=== PATIENT | male | born 1935 | race Caucasian/White ===

== ENCOUNTER → 2021-10-15 | Day surgery (SDC) | payer OTHER ==
[~2021-10-15] MED LIST: ACETAMINOPHEN 1000 MG/100 ML 100 ML IV ONE; ASPIRIN81 MG PO; BIOTIN5 M1 PO; BUPIVACAINE HCL 0.5% INJ 30 ML VIAL INJ ONE; CENTRUM SILVER1 EAC6 PO; DEXAMETHASONE SOD PHOS INJ 4 MG/ML SDV ONE; EPHEDRINE SULFATE INJ 50 MG/ML VIAL ONE; FAMOTIDINE20 MG PO; FLOMAX0.4 MG PO; GLYCOPYRROLATE INJ 0.2 MG/ML VIAL ONE; KETOROLAC TROMETHAMINE 30 MG/ML VIAL ONE; LASIX20 MG PO; LIALDA1.2 GM PO; LIDOCAINE HCL 2% LOCAL INJ 5 ML SDV VIAL INJ ONE; LIPITOR10 MG PO; LYRICA50 MG PO; MICARDIS40 MG PO; MOBIC7.5 MG PO; NEOSTIGMINE 1 MG/ML 10ML VIAL ONE; ONDANSETRON HCL INJ 2MG/ML 2ML 2 MG/ML VIAL ONE; PLAVIX75 MG PO; POVIDONE IODINE 0.05% 0.05 % ML PO ONE; PROPOFOL IV EMULSION 10 MG/ML 20 ML VIAL ONE; SEVOFLURANE INHAL SOLN 250 ML PEN BTL ONE; SODIUM CHLORIDE 0.9% 50ML 50 ML ONE
[2021-10-15 08:20] VITALS: BP 165/78
== END | disposition home or self-care (01) ==
LOC: OR 05:00
PROVIDERS: ATTEND Podiatrist Foot & Ankle Surgery
DX: M19.072 Primary osteoarthritis, left ankle and foot (principal); R42 Dizziness and giddiness; G47.33 Obstructive sleep apnea (adult) (pediatric); I10 Essential (primary) hypertension; I71.4 Abdominal aortic aneurysm, without rupture; K21.9 Gastro-esophageal reflux disease without esophagitis; Z88.8 Allergy status to other drugs, medicaments and biological substances; Z01.812 Encounter for preprocedural laboratory examination; Z20.822 Contact with and (suspected) exposure to COVID-19; Z79.82 Long term (current) use of aspirin; Z79.02 Long term (current) use of antithrombotics/antiplatelets; Z79.899 Other long term (current) drug therapy; Z86.73 Personal history of transient ischemic attack (TIA), and cerebral infarction without residual deficits; Z86.11 Personal history of tuberculosis; Z85.89 Personal history of malignant neoplasm of other organs and systems
CPT/HCPCS: J0690; J1100; J1885; J2001; J2405; J2710; U0002

== ENCOUNTER → 2022-01-06 | Day surgery (SDC) | payer OTHER ==
[2022-01-04 14:54] LABS: BASOPHILS % 0.7 % (0.0-1.0); EOSINOPHILS # (AUTO) 0.4 (0.0-0.4); EOSINOPHILS % 7.3 % (0.0-6.0); LYMPHOCYTES # (AUTO) 1.8 (1.0-3.2); LYMPHOCYTES % 30.7 % (18.0-39.1); MEAN CORPUSCULAR HEMOGLOBIN 32.4 pg (28-32); MEAN CORPUSCULAR HGB CONC 32.4 g/dL (31-35); MONOCYTES # (AUTO) 0.8 (0.2-0.8); MONOCYTES % 13.2 % (4.4-11.3); NEUTROPHILS # (AUTO) 2.9 (2.1-6.9); NEUTROPHILS % 47.9 % (38.7-80.0); PLATELET COUNT 176 x10e3/uL (140-360); RED CELL DISTRIBUTION WIDTH 12.7 % (11.7-14.4)
[~2022-01-06] MED LIST changes: -ACETAMINOPHEN 1000 MG/100 ML 100 ML IV ONE; +BUPIVACAINE 0.25% 30ML SDV ONE; -BUPIVACAINE HCL 0.5% INJ 30 ML VIAL INJ ONE; +DEXAMETHASONE SOD PHOS 10 MG/1 ML VIAL ONE; -DEXAMETHASONE SOD PHOS INJ 4 MG/ML SDV ONE; -EPHEDRINE SULFATE INJ 50 MG/ML VIAL ONE; +FENTANYL CITRATE/PF 100MCG/2 ML INJ ONE; -GLYCOPYRROLATE INJ 0.2 MG/ML VIAL ONE; -KETOROLAC TROMETHAMINE 30 MG/ML VIAL ONE; +LIDOCAINE HCL 1% 30ML-PF VIAL ONE; -LIDOCAINE HCL 2% LOCAL INJ 5 ML SDV VIAL INJ ONE; +MIDAZOLAM HCL 2 MG/2 ML VIAL ONE; -NEOSTIGMINE 1 MG/ML 10ML VIAL ONE; -ONDANSETRON HCL INJ 2MG/ML 2ML 2 MG/ML VIAL ONE; -SEVOFLURANE INHAL SOLN 250 ML PEN BTL ONE; -SODIUM CHLORIDE 0.9% 50ML 50 ML ONE; +TRIAMCINOLONE ACET 40 MG/ML VIAL ONE
[2022-01-06 08:50] VITALS: BP 139/68
== END | disposition home or self-care (01) ==
LOC: OR 06:48
PROVIDERS: ATTEND Physical Medicine & Rehabilitation Pain Medicine
DX: M25.572 Pain in left ankle and joints of left foot (principal); M25.475 Effusion, left foot; M46.1 Sacroiliitis, not elsewhere classified; M54.16 Radiculopathy, lumbar region; M47.896 Other spondylosis, lumbar region; Z96.653 Presence of artificial knee joint, bilateral; G47.33 Obstructive sleep apnea (adult) (pediatric); I10 Essential (primary) hypertension; K21.9 Gastro-esophageal reflux disease without esophagitis; Z88.8 Allergy status to other drugs, medicaments and biological substances; Z01.812 Encounter for preprocedural laboratory examination; Z79.02 Long term (current) use of antithrombotics/antiplatelets; Z79.82 Long term (current) use of aspirin; Z79.899 Other long term (current) drug therapy; Z86.73 Personal history of transient ischemic attack (TIA), and cerebral infarction without residual deficits
CPT/HCPCS: 20605; 36415; 77002; 85025; J1100; J2001; J2250; J2704; J3010; J3301; 77003

== ENCOUNTER → 2022-12-15 | Day surgery (SDC) | payer MEDICARE, OTHER ==
[2022-12-06 14:32] LABS: BASOPHILS % 0.6 % (0.0-1.0); EOSINOPHILS # (AUTO) 0.5 (0.0-0.4); EOSINOPHILS % 6.5 % (0.0-6.0); HEMATOCRIT 35.1 % (38.2-49.6); HEMOGLOBIN 11.4 g/dL (14.0-18.0); LYMPHOCYTES # (AUTO) 2.1 (1.0-3.2); LYMPHOCYTES % 30.6 % (18.0-39.1); MEAN CORPUSCULAR HEMOGLOBIN 31.5 pg (28-32); MEAN CORPUSCULAR HGB CONC 32.5 g/dL (31-35); MONOCYTES # (AUTO) 0.9 (0.2-0.8); MONOCYTES % 12.8 % (4.4-11.3); NEUTROPHILS # (AUTO) 3.4 (2.1-6.9); NEUTROPHILS % 49.2 % (38.7-80.0); PLATELET COUNT 177 x10e3/uL (140-360); RED BLOOD COUNT 3.62 x10e6/uL (4.3-5.7); RED CELL DISTRIBUTION WIDTH 12.7 % (11.7-14.4)
[~2022-12-15] MED LIST changes: -BUPIVACAINE 0.25% 30ML SDV ONE; -DEXAMETHASONE SOD PHOS 10 MG/1 ML VIAL ONE; -FENTANYL CITRATE/PF 100MCG/2 ML INJ ONE; +IOPAMIDOL 200 MG/ML 20 ML VIAL IT ONE; +LACTATED RINGER'S 1,000 ML ONE; +LIDOCAINE HCL 2% LOCAL INJ 5 ML SDV VIAL INJ ONE; -MIDAZOLAM HCL 2 MG/2 ML VIAL ONE
[2022-12-15 07:25] VITALS: BP 166/71
== END | disposition home or self-care (01) ==
LOC: OR 12-08 05:45
PROVIDERS: ATTEND Physical Medicine & Rehabilitation Pain Medicine
DX: M46.1 Sacroiliitis, not elsewhere classified (principal); M25.472 Effusion, left ankle; M25.572 Pain in left ankle and joints of left foot; M25.551 Pain in right hip; I10 Essential (primary) hypertension; Z01.810 Encounter for preprocedural cardiovascular examination; Z01.812 Encounter for preprocedural laboratory examination; Z79.82 Long term (current) use of aspirin; Z79.02 Long term (current) use of antithrombotics/antiplatelets; Z79.899 Other long term (current) drug therapy
CPT/HCPCS: 36415; 85025; 93005; G0260; J2001 ×2; J2704; J3301; J7121; Q9967; 77003

== ENCOUNTER → 2023-09-08 | Outpatient (REF) | payer MEDICARE, OTHER ==
[~2023-09-08] MED LIST changes: -IOPAMIDOL 200 MG/ML 20 ML VIAL IT ONE; -LACTATED RINGER'S 1,000 ML ONE; -LIDOCAINE HCL 1% 30ML-PF VIAL ONE; -LIDOCAINE HCL 2% LOCAL INJ 5 ML SDV VIAL INJ ONE; -POVIDONE IODINE 0.05% 0.05 % ML PO ONE; -PROPOFOL IV EMULSION 10 MG/ML 20 ML VIAL ONE; -TRIAMCINOLONE ACET 40 MG/ML VIAL ONE
== END ==
LOC: MRI 08:18
PROVIDERS: ATTEND Physical Medicine & Rehabilitation Pain Medicine
DX: M25.551 Pain in right hip (principal)

== ENCOUNTER → 2024-05-15 | Day surgery (SDC) | payer MEDICARE, OTHER ==
[2024-05-13 14:41] LABS: BASOPHILS % 0.5 % (0.0-1.0); EOSINOPHILS # (AUTO) 0.2 (0.0-0.4); EOSINOPHILS % 1.9 % (0.0-6.0); HEMATOCRIT 34.2 % (38.2-49.6); HEMOGLOBIN 10.9 g/dL (14.0-18.0); LYMPHOCYTES # (AUTO) 1.7 (1.0-3.2); LYMPHOCYTES % 21.7 % (18.0-39.1); MEAN CORPUSCULAR HEMOGLOBIN 32.8 pg (28-32); MEAN CORPUSCULAR HGB CONC 31.9 g/dL (31-35); MONOCYTES # (AUTO) 0.6 (0.2-0.8); MONOCYTES % 7.3 % (4.4-11.3); NEUTROPHILS # (AUTO) 5.4 (2.1-6.9); NEUTROPHILS % 68.2 % (38.7-80.0); PLATELET COUNT 163 x10e3/uL (140-360); RED BLOOD COUNT 3.32 x10e6/uL (4.3-5.7); RED CELL DISTRIBUTION WIDTH 13.2 % (11.7-14.4); WHITE BLOOD COUNT 7.85 x10e3/uL (4.8-10.8)
[~2024-05-15] MED LIST changes: +AMLODIPINE BESYL5 MG PO; +IOPAMIDOL 200 MG/ML 20 ML VIAL IT ONE; +LIDOCAINE HCL 1% 30ML-PF VIAL ONE; +LIDOCAINE HCL 2% LOCAL INJ 5 ML SDV VIAL INJ ONE; +MELOXICAM7.5 MG PO; +NEXIUM40 MG PO; +PROPOFOL IV EMULSION 10 MG/ML 20 ML VIAL ONE; +TRIAMCINOLONE ACET 40 MG/ML VIAL ONE
[2024-05-15] MEDS: LACTATED RINGER'S 1,000 ML ONE (10:33)
[2024-05-15 10:59] VITALS: TEMP 97.5
[2024-05-15 11:14] VITALS: BP 124/64; PULSE 53; RESP 16; O2SAT 96
== END | disposition home or self-care (01) ==
LOC: OR 05:00
PROVIDERS: ATTEND Physical Medicine & Rehabilitation Pain Medicine
DX: M25.572 Pain in left ankle and joints of left foot (principal); M25.472 Effusion, left ankle; M46.1 Sacroiliitis, not elsewhere classified; M54.16 Radiculopathy, lumbar region; M47.816 Spondylosis without myelopathy or radiculopathy, lumbar region; G47.33 Obstructive sleep apnea (adult) (pediatric); I10 Essential (primary) hypertension; E78.5 Hyperlipidemia, unspecified; K21.9 Gastro-esophageal reflux disease without esophagitis; Z01.810 Encounter for preprocedural cardiovascular examination; Z01.812 Encounter for preprocedural laboratory examination; Z79.82 Long term (current) use of aspirin; Z79.1 Long term (current) use of non-steroidal anti-inflammatories (NSAID); Z79.899 Other long term (current) drug therapy; Z86.16 Personal history of COVID-19; Z87.01 Personal history of pneumonia (recurrent); Z85.818 Personal history of malignant neoplasm of other sites of lip, oral cavity, and pharynx; Z96.641 Presence of right artificial hip joint; Z86.73 Personal history of transient ischemic attack (TIA), and cerebral infarction without residual deficits; Z86.11 Personal history of tuberculosis
CPT/HCPCS: 20605; 36415; 77002; 85025; 93005; J2001 ×2; J2704; J3301; J7121; Q9967

== ENCOUNTER 2025-04-29 09:19 | Observation (INO) | payer MEDICARE, OTHER ==
[2025-04-28 09:06] LABS: BASOPHILS % 0.4 % (0.0-1.0); EOSINOPHILS % 2.9 % (0.0-6.0); LYMPHOCYTES % 19.9 % (18.0-39.1); MONOCYTES % 9.0 % (4.4-11.3); NEUTROPHILS % 67.5 % (38.7-80.0); RED CELL DISTRIBUTION WIDTH 12.5 % (11.7-14.4)
[2025-04-28 09:38] LABS: INR 0.87
[2025-04-28 09:52] LABS: EST GLOMERULAR FILTRATION RATE 42.0 ML/MIN (>=60)
[~2025-04-29 09:19] MED LIST changes: +BUMETANIDE1 MG PO; +CENTRUM SILVER1 EAC3 PO; +CLOPIDOGREL75 MG PO; -IOPAMIDOL 200 MG/ML 20 ML VIAL IT ONE; +LEG CRAMP MED PO; -LIDOCAINE HCL 1% 30ML-PF VIAL ONE; -LIDOCAINE HCL 2% LOCAL INJ 5 ML SDV VIAL INJ ONE; -PROPOFOL IV EMULSION 10 MG/ML 20 ML VIAL ONE; +ROPIVACAINE/EPI/CLONIDINE/KET 50 ML SYRINGE INJ ONE; -TRIAMCINOLONE ACET 40 MG/ML VIAL ONE; +TYLENOL EXTRA500 MG PO
[2025-04-29] MEDS: LACTATED RINGER'S 1,000 ML ONE (10:29)
[2025-04-29] MEDS: CEFAZOLIN SODIUM 2 GM ONE (10:29)
[2025-04-29] MEDS ORDERED: MIDAZOLAM HCL 2 MG/2 ML VIAL ONE (10:47)
[2025-04-29] MEDS ORDERED: ETOMIDATE 40 MG/ 20ML VIAL IV ONE (10:47)
[2025-04-29] MEDS ORDERED: DEXAMETHASONE SOD PHOS INJ 4 MG/ML SDV ONE (10:47)
[2025-04-29] MEDS ORDERED: KETOROLAC TROMETHAMINE 30 MG/ML VIAL ONE (10:47)
[2025-04-29] MEDS ORDERED: ONDANSETRON HCL INJ 2MG/ML 2ML 2 MG/ML VIAL ONE (10:47)
[2025-04-29] MEDS ORDERED: FENTANYL CITRATE/PF 100MCG/2 ML INJ ONE (10:47)
[2025-04-29] MEDS ORDERED: ROCURONIUM BROMIDE 1 ML IV ONE (10:48)
[2025-04-29] MEDS ORDERED: ACETAMINOPHEN 1000 MG/100 ML 100 ML IV ONE (11:56)
[2025-04-29] MEDS ORDERED: Morphine 10mg syringe 10 MG/ML INJ ONE (12:01)
[2025-04-29] MEDS ORDERED: SUGAMMADEX SODIUM 200 MG/2 ML VIAL IV ONE (12:05)
[2025-04-29] MEDS: ONDANSETRON HCL INJ 2MG/ML 2ML 2 MG/ML VIAL ONE (13:00)
[2025-04-29] MEDS: METOCLOPRAMIDE HCL 10 MG/2ML VIAL ONE (13:00)
[2025-04-29] MEDS: FENTANYL CITRATE/PF 100MCG/2 ML INJ ONE (13:05)
[2025-04-29 14:30] VITALS: BP 112/58; PULSE 65; RESP 18; TEMP 97.7; O2SAT 99
[2025-04-29 15:20] VITALS: BP 112/58; PULSE 65; RESP 18; TEMP 97.5; O2SAT 99
[2025-04-29] MEDS ORDERED: FAMOTIDINE40 MG PO (15:58)
[2025-04-29 18:45] VITALS: BP 130/44; PULSE 65; RESP 18; TEMP 97.4; O2SAT 95
[2025-04-29] MEDS ORDERED: Morphine 2mg Syringe 2 MG/ML SYR IV PRN (19:00)
[2025-04-29] MEDS ORDERED: HYDROCODONE/APAP 5MG-325MG TAB PO PRN ×2 (19:00→21:00)
[2025-04-29] MEDS ORDERED: ALBUTEROL 90 MCG/ACT INHALER INH PRN (19:00)
[2025-04-29] MEDS: ACETAMINOPHEN 325 MG TAB PO PRN (19:43)
[2025-04-29] MEDS ORDERED: SEVOFLURANE INHAL SOLN 250 ML PEN BTL ONE (19:51)
[2025-04-29 20:00] VITALS: BP 137/53; PULSE 57; RESP 16; TEMP 97.7; O2SAT 100
[2025-04-29 21:00] VITALS: BP 137/53; PULSE 57; RESP 18; TEMP 97.7; O2SAT 100
[2025-04-29] MEDS ORDERED: Morphine 4mg INJECTION 4 MG/ML INJ IV PRN (21:00)
[2025-04-29] MEDS ORDERED: ACETAMINOPHEN 325 MG TAB PO PRN (21:00)
[2025-04-29] MEDS: ONDANSETRON HCL INJ 2MG/ML 2ML 2 MG/ML VIAL IV PRN (21:50)
[2025-04-30] VITALS: BP 161/59; PULSE 62; RESP 18; TEMP 97.7; O2SAT 100
[2025-04-30] MEDS: HEPARIN SOD (PORCINE) 5,000 UNIT/ML VIAL SC SCH (00:48)
[2025-04-30] MEDS: MELATONIN 5 MG TABLET PO PRN (01:46)
[2025-04-30 05:09] VITALS: BP 122/58; PULSE 64; RESP 18; TEMP 97.5; O2SAT 100
[2025-04-30 05:13] LABS: BASOPHILS % 0.2 % (0.0-1.0); EOSINOPHILS % 0.1 % (0.0-6.0); LYMPHOCYTES % 14.2 % (18.0-39.1); MONOCYTES % 11.0 % (4.4-11.3); NEUTROPHILS % 74.2 % (38.7-80.0); RED CELL DISTRIBUTION WIDTH 12.6 % (11.7-14.4)
[2025-04-30 05:47] LABS: EST GLOMERULAR FILTRATION RATE 43.0 ML/MIN (>=60)
[2025-04-30 09:21] VITALS: BP 124/59; PULSE 59; RESP 18; TEMP 98.3; O2SAT 97
[2025-04-30 10:03] VITALS: BP 124/59; PULSE 59; RESP 18; TEMP 98.3; O2SAT 97
[2025-04-30] MEDS ORDERED: KEFLEX125 MG/5 M PO (15:53)
[2025-04-30] MEDS ORDERED: TYLENOL EXTRA500 MG PO (15:58)
== END 2025-04-30 15:00 | disposition home or self-care (01) ==
LOC: OR 09:19 → PACU V 12:37 → MED/SURG2 14:43
PROVIDERS: ADMIT Orthopaedic Surgery; ATTEND Orthopaedic Surgery
DX: M16.12 Unilateral primary osteoarthritis, left hip (principal); D64.89 Other specified anemias; I12.9 Hypertensive chronic kidney disease with stage 1 through stage 4 chronic kidney disease, or unspecified chronic kidney disease; N18.30 Chronic kidney disease, stage 3 unspecified; E78.5 Hyperlipidemia, unspecified; Z01.810 Encounter for preprocedural cardiovascular examination; Z01.812 Encounter for preprocedural laboratory examination; Z01.818 Encounter for other preprocedural examination; K21.9 Gastro-esophageal reflux disease without esophagitis; Z96.641 Presence of right artificial hip joint; I25.10 Atherosclerotic heart disease of native coronary artery without angina pectoris; Z95.5 Presence of coronary angioplasty implant and graft; Z86.73 Personal history of transient ischemic attack (TIA), and cerebral infarction without residual deficits; I65.29 Occlusion and stenosis of unspecified carotid artery; G47.33 Obstructive sleep apnea (adult) (pediatric); Z85.818 Personal history of malignant neoplasm of other sites of lip, oral cavity, and pharynx; Z85.828 Personal history of other malignant neoplasm of skin
CPT/HCPCS: 27130; 36415 ×3; 71046; 72170; 80048 ×2; 80076; 85025 ×2; 85610; 85730; 86850; 86900; 93005; 97110; 97116 ×2; 97161; 97530; 99252; C1713 ×3; C1776 ×3; G0378 ×2; J0131; J1100; J1644; J1885; J2250; J2270; J2405; J2765; J3010; J7121; 76000